=== PATIENT | male | born 1950 | race Caucasian/White ===

== ENCOUNTER 2017-08-18 13:25 | Emergency (ER) | payer MEDICARE, BC, OTHER ==
[2017-09-14] MEDS ORDERED: NORVASC5 MG PO (12:27)
[2017-09-14] MEDS ORDERED: VALTREX500 MG PO (12:28)
[2017-09-14] MEDS ORDERED: K-DUR20 MEQ PO (12:28)
[2017-09-14] MEDS ORDERED: DIOVAN HCT 320/1 TAB PO (12:29)
[2017-09-14] MEDS ORDERED: LIPITOR20 MG PO (12:29)
[2017-09-14] MEDS ORDERED: IBUPROFEN800 MG PO (12:31)
[2017-09-14] MEDS ORDERED: PEPCID20 MG PO (13:05)
[2017-09-14] MEDS ORDERED: BAYER CHEWABLE81 MG PO (13:09)
[2017-10-09 07:21] VITALS: BMI 25.1
== END 2017-08-18 14:23 | disposition home or self-care (01) ==
LOC: D.ER 13:25
DX: M54.30 Sciatica, unspecified side (principal); S39.012A Strain of muscle, fascia and tendon of lower back, initial encounter; X50.0XXA Overexertion from strenuous movement or load, initial encounter; Y93.89 Activity, other specified; Y92.89 Other specified places as the place of occurrence of the external cause

== ENCOUNTER → 2017-08-22 14:17 | Outpatient (CLI) | payer MEDICARE, BC, OTHER ==
[~2017-08-22 14:17] MED LIST: BAYER CHEWABLE81 MG PO; CALTRATE 600 M600 M1 PO; DIOVAN HCT 320/1 TAB PO; IBUPROFEN800 MG PO; K-DUR20 MEQ PO; LIPITOR20 MG PO; NORVASC5 MG PO; PEPCID20 MG PO; VALTREX500 MG PO
[2017-10-09 07:21] VITALS: BMI 25.1
== END | disposition home or self-care (01) ==
LOC: D.MRI 14:17
DX: S32.029A Unspecified fracture of second lumbar vertebra, initial encounter for closed fracture (principal); X58.XXXA Exposure to other specified factors, initial encounter; Y93.89 Activity, other specified; Y92.89 Other specified places as the place of occurrence of the external cause

== ENCOUNTER → 2017-09-12 13:37 | Outpatient (CLI) | payer MEDICARE, BC, OTHER ==
[2017-10-09 07:21] VITALS: BMI 25.1
== END | disposition home or self-care (01) ==
LOC: D.MRI 13:37
DX: S24.114A Complete lesion at T11-T12 level of thoracic spinal cord, initial encounter (principal)

== ENCOUNTER 2017-09-14 13:25 | Outpatient (CLI) | payer MEDICARE, BC, OTHER ==
[~2017-09-14] VITALS: Ht 180.3 cm; Wt 81.8 kg
[2017-09-14 12:32] VITALS: BP 139/96; Ht 180.3 cm; Wt 81.8 kg
[2017-09-14 13:10] LABS: APPEARANCE CLEAR (CLEAR); COLOR YELLOW (YELLOW); GLUCOSE NEGATIVE (NEGATIVE); KETONE NEGATIVE (NEGATIVE); NITRITE NEGATIVE (NEGATIVE); PROTEIN NEGATIVE (NEGATIVE); SPECIFIC GRAVITY 1.015 (1.005-1.020)
[2017-09-14 13:11] LABS: BILIRUBIN NEGATIVE (NEGATIVE); UROBILINOGEN NORMAL (NORMAL)
[2017-09-14 13:17] LABS: APTT 22.9 SECONDS (22.8-39.4); INR 0.97 (0.85-1.17); PROTIME 12.5 SECONDS (11.6-15.0)
[~2017-09-14 13:25] MED LIST changes: -CALTRATE 600 M600 M1 PO
== END 2017-09-14 19:00 | disposition home or self-care (01) ==
LOC: D.OPS 13:25
PROVIDERS: Radiology Diagnostic Radiology
DX: M48.56XA Collapsed vertebra, not elsewhere classified, lumbar region, initial encounter for fracture (principal); F17.200 Nicotine dependence, unspecified, uncomplicated; I10 Essential (primary) hypertension; G47.30 Sleep apnea, unspecified; K21.9 Gastro-esophageal reflux disease without esophagitis; Z01.812 Encounter for preprocedural laboratory examination

== ENCOUNTER 2017-09-17 06:01 | Outpatient (CLI) | payer MEDICARE, BC, OTHER ==
[~2017-09-17] VITALS: Ht 180.3 cm; Wt 81.8 kg
[2017-09-17 07:10] VITALS: Ht 180.3 cm; Wt 81.8 kg
[2017-09-17 07:43] LABS: BASOPHILS 0.2 % (0-2); EOSINOPHILS 2.2 % (0-7); HEMATOCRIT 34.9 % (42.0-54.0); HEMOGLOBIN 12.4 g/dL (13.5-17.5); IMMATURE GRANULOCYTES 0.7 % (0-5); LYMPHOCYTES 25.4 % (15-50); MCH 33.5 pg (26.0-34.0); MCHC 35.5 g/dL (31.0-37.0); MCV 94.3 fL (80.0-100.0); MEAN PLATELET VOLUME 9.4 fL (7.4-10.4); MONOCYTES 14.6 % (2-11); NEUTROPHILS 56.9 % (40-80); PLATELET COUNT 187 10x3/uL (130-400); RDW 13.6 % (11.5-14.5); WBC 4.5 10x3/uL (4.8-10.8)
[2017-09-17 07:59] LABS: ANION GAP 15.1 mmol/L (8-16); CARBON DIOXIDE 23.4 mmol/L (21.0-32.0); CREATININE - SERUM 1.1 mg/dL (0.6-1.3); POTASSIUM - SERUM 3.5 mmol/L (3.5-5.1)
[2017-09-17 08:07] LABS: APTT 22.7 SECONDS (22.8-39.4); INR 0.97 (0.85-1.17); PROTIME 12.5 SECONDS (11.6-15.0)
== END 2017-09-17 11:20 | disposition home or self-care (01) ==
LOC: D.OPS 06:01 → D.SP 08:00 → D.OPS 11:20
PROVIDERS: Radiology Diagnostic Radiology
DX: M89.9 Disorder of bone, unspecified (principal); Z01.812 Encounter for preprocedural laboratory examination

== ENCOUNTER 2017-10-09 06:08 | Outpatient (CLI) | payer MEDICARE, OTHER ==
[~2017-10-09] VITALS: Ht 180.3 cm; Wt 81.8 kg
[2017-10-09] MEDS ORDERED: CALTRATE 600 M600 M1 PO (07:12)
[2017-10-09 07:21] VITALS: Ht 180.3 cm; Wt 81.8 kg
[2017-10-09 07:38] LABS: BASOPHILS 0.5 % (0-2); EOSINOPHILS 2.1 % (0-7); HEMATOCRIT 32.1 % (42.0-54.0); HEMOGLOBIN 11.1 g/dL (13.5-17.5); IMMATURE GRANULOCYTES 1.1 % (0-5); MCH 32.8 pg (26.0-34.0); MCHC 34.6 g/dL (31.0-37.0); MEAN PLATELET VOLUME 8.9 fL (7.4-10.4); MONOCYTES 15.2 % (2-11); NEUTROPHILS 43.1 % (40-80); PLATELET COUNT 167 10x3/uL (130-400); RBC 3.38 10x6/uL (4.20-6.10); WBC 3.8 10x3/uL (4.8-10.8)
[2017-10-09 07:46] LABS: ANION GAP 12.4 mmol/L (8-16); CALCIUM 8.7 mg/dL (8.5-10.1); CARBON DIOXIDE 26.7 mmol/L (21.0-32.0); CREATININE - SERUM 1.2 mg/dL (0.6-1.3); POTASSIUM - SERUM 4.1 mmol/L (3.5-5.1)
[2017-10-09 07:49] LABS: APTT 22.5 SECONDS (22.8-39.4); PROTIME 12.8 SECONDS (11.6-15.0)
== END 2017-10-09 10:50 | disposition home or self-care (01) ==
LOC: D.OPS 06:08 → D.CT 08:00 → D.OPS 08:00
PROVIDERS: General Practice
DX: C90.00 Multiple myeloma not having achieved remission (principal); Z01.812 Encounter for preprocedural laboratory examination

== ENCOUNTER 2017-12-03 16:35 | Emergency (ER) | payer MEDICARE, OTHER ==
[2017-10-09 07:21] VITALS: BMI 25.1
[~2017-12-03 16:35] MED LIST changes: +CALTRATE 600 M600 M1 PO
== END 2017-12-03 20:34 | disposition home or self-care (01) ==
LOC: D.ER 16:35
DX: S61.511A Laceration without foreign body of right wrist, initial encounter (principal); W26.9XXA Contact with unspecified sharp object(s), initial encounter; Y93.89 Activity, other specified; Y92.019 Unspecified place in single-family (private) house as the place of occurrence of the external cause; C90.00 Multiple myeloma not having achieved remission; F17.200 Nicotine dependence, unspecified, uncomplicated

== ENCOUNTER 2021-02-26 13:57 | Emergency (ER) | payer MEDICARE, OTHER ==
[~2021-02-26] VITALS: Ht 180.3 cm; Wt 67.3 kg
[2021-02-26 14:00] VITALS: Ht 180.3 cm; Wt 67.3 kg
[2021-02-26 14:55] LABS: BASOPHILS 0.6 % (0-2); EOSINOPHILS 0.7 % (0-7); HEMATOCRIT 37.1 % (42.0-54.0); HEMOGLOBIN 12.8 g/dL (13.5-17.5); LYMPHOCYTES 4.6 % (15-50); MCH 34.1 pg (26.0-34.0); MCHC 34.5 g/dL (31.0-37.0); MCV 98.8 fL (80.0-100.0); MEAN PLATELET VOLUME 7.5 fL (7.4-10.4); MONOCYTES 12.2 % (2-11); NEUTROPHILS 81.9 % (40-80); RBC 3.75 10x6/uL (4.20-6.10); RDW 15.3 % (11.5-14.5); WBC 6.7 10x3/uL (4.8-10.8)
[2021-02-26 14:57] LABS: PLATELET COUNT 123 10x3/uL (130-400)
[2021-02-26 15:03] LABS: ANION GAP 17.3 mmol/L (8-16); CALCIUM 8.3 mg/dL (8.5-10.1); CARBON DIOXIDE 19.6 mmol/L (21.0-32.0); CREATININE - SERUM 1.4 mg/dL (0.6-1.3); POTASSIUM - SERUM 3.9 mmol/L (3.5-5.1)
[2021-02-26 15:05] LABS: APTT 23.8 SECONDS (22.8-39.4); INR 1.22 (0.85-1.17); PROTIME 14.2 SECONDS (11.6-15.0)
[2021-02-26 15:09] LABS: ALBUMIN 3.8 g/dL (3.4-5.0); BILIRUBIN - TOTAL 0.73 mg/dL (0.2-1.3)
[2021-02-26 15:14] LABS: BILIRUBIN NEGATIVE (NEGATIVE); KETONE 1+ mg/dL (< 1+); NITRITE NEGATIVE (NEGATIVE); UROBILINOGEN NORMAL mg/dL (< 2); WHITE CELLS - URINE <1 HPF (0-1)
[2021-02-26 16:51] VITALS: BP 163/73
== END 2021-02-26 16:58 ==
LOC: D.ER 13:57
PROVIDERS: Family Medicine
DX: R51.9 Headache, unspecified (principal); S06.5X0A Traumatic subdural hemorrhage without loss of consciousness, initial encounter; I10 Essential (primary) hypertension; I25.2 Old myocardial infarction; M54.9 Dorsalgia, unspecified